=== PATIENT | female | born 1995 | race Caucasian/White ===

== ENCOUNTER 2020-11-04 07:13 | Emergency (ER) | payer BC, SELFPAY ==
[2020-11-04] VITALS (9 sets, daily range): BP systolic 114–136; BP diastolic 66–91; PULSE 60–88; RESP 20; TEMP 36.4–36.8; O2SAT 99–100
--- NOTE | ~2020-11-04 | XR_ITS ---
EXAMINATION: XR shoulder LT min 2V INDICATION: Left shoulder dislocation and pain TECHNIQUE: Four views of the left shoulder are submitted. COMPARISON: None FINDINGS: There is anterior/inferior dislocation of the left humeral head with respect to the glenoid . The acromioclavicular joint is unremarkable. No fracture is identified. The visualized portions of the thorax are unremarkable. Soft tissues are unremarkable. IMPRESSION: 1. Anterior/inferior left glenohumeral dislocation. Reviewed, dictated and finalized at location A. WASHING MACHINE REPAIRER
--- NOTE | ~2020-11-04 | XR_ITS ---
EXAMINATION: XR shoulder LT 1V INDICATION: Left shoulder dislocation post reduction TECHNIQUE: AP view of the left shoulder is obtained. COMPARISON: 0734 hours FINDINGS: The previously described anterior glenohumeral dislocation has been reduced. Alignment is a natomic. No fracture is identified. The visualized portions of the thorax are unremarkable. IMPRESSION: 1. Reduced left glenohumeral dislocation. Reviewed, dictated and finalized at location A. NG MACHINE OPERATOR AUTOMATIC
--- NOTE | 2020-11-04 07:27 | ED.UPPEXIN ---
HPI - Extremity Injury (Upper) General Chief Complaint: Extremity Injury, Upper Stated Complaint: left shoulder dislocation Time Seen by Provider: 11/04/20 07:17 Source: patient Mode of arrival: ambulatory Limitations: no limitations History of Present Illness HPI narrative: A 25-year-old female comes into the emergency department, planing of a left shoulder dislocation. Patient states that she has done this before. She notes a sensation. Patient states that she tried to reduce the shoulder with the help of a neighbor but was unsuccessful. She is complaining of pain in that left shoulder, denies any numbness or tingling in the distal extremity. She has noted that her hand has started to turn blue and feel cold. Related Data Allergies Allergy/AdvReac Type Severity Reaction Status Date / Time No Known Allergies Allergy Verified 11/04/20 07:51 Review of Systems Review of Systems: Narrative: CONSTITUTIONAL: Denies fever, chills, or sweats. EYES: Denies visual changes, redness, or discharge. ENT: Denies rhinorrhea, congestion, sore throat, or otalgia. CARDIOVASCULAR: Denies chest pain, palpitations, or edema. RESPIRATORY: Denies cough or dyspnea. GASTROINTESTINAL: Denies abdominal pain, nausea, vomiting, or diarrhea. GENITOURINARY: Denies dysuria or hematuria. SKIN: Denies rash or itching. MUSCULOSKELETAL: Denies back pain, joint pain, or myalgia. Endorses left shoulder pain NEUROLOGIC: Denies headache, numbness, dizziness, or weakness. PSYCHIATRIC: Denies anxiety or depression. [facility] Social History Social History Gender identity (if verbalized by the patient): Female Exam Narrative: Exam Narrative: GENERAL: Well-appearing, well-nourished, and in no acute distress. HEAD: Normocephalic, atraumatic. EYES: PERRLA and EOMI. ENT: Nares clear, no rhinorrhea or epistaxis. Mucous membranes moist. Oropharynx without tonsillar hypertrophy exudate or other lesions. Bilateral TMs pearly nava nonbulging NECK: Supple. No adenopathy or masses. No carotid bruits or JVD CHEST: Clear to auscultation. No respiratory distress. No wheezes rales or rhonchi HEART: Regular rate and rhythm. No murmur heard. Normal peripheral pulses. ABDOMEN: Soft, nontender, nondistended, normal active bowel sounds. EXTREMITIES: No edema. Obvious deformity of the left shoulder, left hand is dusky and cool. SKIN: Warm, dry, no rash. NEURO: No focal deficits. Alert and oriented x3. PSYCH: Normal mood and affect. Course Reevaluation(s) Reevaluation #1: Patient now awake and alert. It appears as though the effects of the sedatives have worn off. She is answering all questions, seems very oriented. Patient will be observed for a bit longer and then discharged. Time: 08:30 Vital Signs Vital signs: Vital Signs Temperature 36.4 C 11/04/20 07:20 Pulse Rate 78 11/04/20 07:20 Respiratory Rate 20 11/04/20 07:20 Blood Pressure 126/81 11/04/20 07:20 Pulse Oximetry 100 11/04/20 07:20 Temperature 36.8 C 11/04/20 08:15 Pulse Rate 60 11/04/20 08:15 Respiratory Rate 20 11/04/20 08:15 Blood Pressure 114/74 11/04/20 08:15 Pulse Oximetry 100 11/04/20 08:15 Procedures Orthopedic Joint Reduction Joint #1: Time Out Performed: Yes Side: left Joint Reduction Location: shoulder Analgesia: procedural sedation Pre-Procedure Neuro Vascular Exam: abnormal (L hand cool and dusky, sensation intact) Shoulder Technique Used (if applicable): external rotation Post-reduction neuro exam: intact Post-reduction vascular: intact Post Reduction X-Ray Obtained: Yes Post Reduction X-Ray Results: reduced Splint Applied: Yes Patient Tolerated Procedure: well Procedural Sedation Procedural Sedation #1: Provider Performed: sedation and procedure Informed Consent Obtained: yes Equipment in Room: bag and mask, capnography,
[2020-11-04] MEDS: fentaNYL CITRATE INJ (*CRX) 100 MCG/2 ML VIAL 50 MCG IV PUSH (07:55)
[2020-11-04] MEDS: PROPOFOL IV EMULSION 200 MG/20 ML VIAL 65 MG IV PUSH (07:55)
--- NOTE | 2020-11-04 08:04 | PC.NURSE ---
0757 65 mg Propofol ivp given with dr mcmahan at bedside. 0800 40 mg IVP propofol given. dr mcmahan at bedside. jacker in place. pt tolerate well
== END 2020-11-04 08:51 | disposition home or self-care (01) ==
PROVIDERS: Emergency Provider Emergency Medicine; PCP Family Medicine
DX: M24.412 Recurrent dislocation, left shoulder (principal)
CPT/HCPCS: 23650; 73020; 73030; 96374; 96375; 99285; A4565; J2704; J3010

== ENCOUNTER 2020-12-02 08:26 | Outpatient (CLI) | payer BC, SELFPAY ==
--- NOTE | ~2020-12-02 | MR_ITS ---
EXAMINATION: MR shoulder LT w con DATE: 12/02/2020 10:36 INDICATION: Left shoulder anterior dislocation TECHNIQUE: Magnetic resonance imaging (MRI) of the left shoulder was performed following intra-artic ular gadolinium contrast injection and without intravenous contrast. Details of the glenohumeral join t injection have been dictated separately. Sequences included axial T2-weighted FS FSE, axial T1-feroz ghted FS FSE, coronal oblique T1-weighted FS FSE, coronal oblique T2-weighted FSE, sagittal T2-weight ed FS FSE, sagittal T1-weighted FSE, and ABER (abduction external rotation) T1-weighted FS FSE. COMPARISON: Left shoulder radiographs dated 11/04/2020 FINDINGS: Coracoacromial arch: The acromion undersurface is curved in morphology (type II). The coracoacromial ligament is normal. Acromioclavicular joint is normal. Rotator cuff: The supraspinatus, infraspinatus and teres minor are normal. The subscapularis is normal. Normal rota tor cuff muscle bulk and signal. Biceps tendon, glenoid labrum and glenohumeral cartilage: Long head of the biceps tendon is intact. There is a Perthes lesion at the anteroinferior glenoid wit h tear at the chondral labral junction and periosteal stripping including the glenoid attachment of t he anterior and middle glenohumeral ligaments extending approximately 1 cm medially along the anterio r neck of the glenoid. In addition there is a shallow cleft consistent with chondral labral delaminat ion at the 7:00-9:00 position of the posterior inferior glenoid labrum. Glenohumeral cartilage is nor mal. Bones and other: There is marrow edema underlying a Hill-Sachs fracture trough at the posterior superior aspect of the humeral head. Otherwise normal marrow signal. No pathologic marrow replacing process. No abnormal fl uid signal in the subacromial/subdeltoid bursa to suggest bursitis. IMPRESSION: 1. Injury pattern consistent with recent anterior glenohumeral dislocation including a Perthes lesion with labral tear and periosteal stripping at the anteroinferior glenoid including the glenoid attach ments of the middle and inferior glenohumeral ligaments and Hill-Sachs fracture trough at the posteri or superior humeral head. Reviewed, dictated and finalized at location B. IMPRESSION: 1. Injury pattern consistent with recent anterior glenohumeral dislocation incl uding a Perthes lesion with labral tear and periosteal stripping at the anteroi nferior glenoid including the glenoid attachments of the middle and inferior gl enohumeral ligaments and Hill-Sachs fracture trough at the posterior superior h umeral head.
--- NOTE | ~2020-12-02 | XR_ITS ---
EXAMINATION: XR fl inj shoulder LT - MR/CT DATE: 12/02/2020 09:37 INDICATION: Anterior left shoulder dislocation. TECHNIQUE: A time-out was performed to verify the patient's name, date of , and procedure to b e performed. The procedure including the risks, benefits, and alternatives was discussed with the pat ient. Risks discussed included bleeding and infection. The patient understood the risks and agreed to proceed. The skin overlying the left glenohumeral joint was prepped and draped in usual sterile fash ion. Anesthetic was administered with 1% lidocaine subcutaneously. A 22 G needle was advanced under fluoroscopic guidance into the joint. Subsequently, injectate consisting of 12 mL of 1:200 Multihan ce, 1:4 1% lidocaine, and 1:4 Omnipaque 240 was instilled. The needle was removed and the entry site was cleaned and dressed. There were no immediate complications. Fluoroscopy exposure time was 0.1 m inutes. The total number of images was 3. FINDINGS: Real-time fluoroscopy demonstrates the needle and contrast in the left glenohumeral joint. IMPRESSION: 1. Successful left glenohumeral joint injection of contrast for subsequent MR arthrography. Reviewed, dictated and finalized at location A. IMPRESSION: 1. Successful left glenohumeral joint injection of contrast for subsequent MR a rthrography.
== END 2020-12-02 08:27 | disposition home or self-care (01) ==
PROVIDERS: PCP Family Medicine; Visit Provider Orthopaedic Surgery
DX: S43.015A Anterior dislocation of left humerus, initial encounter (principal); X58.XXXA Exposure to other specified factors, initial encounter
CPT/HCPCS: 23350; 73222; A9577; Q9966

== ENCOUNTER 2022-10-19 17:44 | Inpatient (IN) | payer BC, SELFPAY ==
[2022-10-19] VITALS (69 sets, daily range): BP systolic 101–172; BP diastolic 59–123; PULSE 59–136; O2SAT 83–100; BMI 29.2
[2022-10-19 19:35] LABS: Basophils Absolute Auto 0.1 K/mm3 (0.0-0.1); Basophils Percent Auto 0.4 % (0.2-1.2); Eosinophils Absolute Auto 0.1 K/mm3 (0-0.3); Eosinophils Percent Auto 0.7 % (0-4.4); Hematocrit 39.3 % (37.0-47.0); Hemoglobin 13.4 g/dL (12.0-15.0); Immature Granulocyte Absolute 0.14 K/mm3 (0.00-0.031); Lymphocytes Absolute Auto 2.04 K/mm3 (0.9-3.2); Lymphocytes Percent Auto 14.2 % (18.3-44.2); Mean Corpuscular HGB Conc 34.1 g/dl (32-36); Mean Corpuscular Volume 88.1 fl (80-100); Mean Platelet Volume 12.5 fl (7.4-10.4); Monocytes Percent Auto 6.8 % (2.6-8.5); Neutrophils Absolute Auto 11.1 K/mm3 (1.3-6.7); Neutrophils Percent Auto 76.9 % (45.5-73.1); Platelet Count Result 151 k/mm3 (150-375); Red Blood Count 4.46 M/mm3 (4.2-5.4); Red Cell Distribution Width 12.6 % (11.5-14.5); White Blood Count 14.4 K/mm3 (4.5-10.0)
--- NOTE | 2022-10-19 19:50 | LDADM ---
This patient, Leah Valentino, was admitted to Labor/Delivery/Recovery 104 on 10/19/22 at 17:44. Plans for labor, pain management and were discussed with patient. Patient/family oriented to hospital policies and general routines including ID bracelet, bed and alarms, visiting hours, pain management, procedures, bathroom and other care routines, personal items, smoking policy, room service/diet and guest tray routines, security routines, and visiting hours. Patient/Family are encouraged to report perceived risks to care and to ask questions if they do not understand what they are told or what they should do. See OBIX for further documentation.
[2022-10-19] MEDS: LACTATED RINGERS 1,000 ML 125 ML IV CONT ×2 (20:29→22:06)
--- NOTE | 2022-10-19 21:15 | WPDANESEPP ---
Anes - Eval Pre Procedure Procedure: Labor epidural Date/Time: 10/19/22 21:15 Surgeon: Brian Preop Diagnosis: Pain c contractions Pre Op Diagnosis: labor Patient Data Age: 27 Gender: F Height: 1.6 m Weight: 75 kg Last Vital Signs Pulse 67 10/19/22 19:16 BP 142/92 H 10/19/22 19:16 Allergies Allergy/AdvReac Type Severity Reaction Status Date / Time No Known Allergies Allergy Verified 11/04/20 07:51 Home Medications Medication Instructions Recorded Confirmed Type biotin 10,000 mcg capsule 10,000 mcg PO DAILY 09/29/22 09/29/22 History diphenhydramine HCl 25 mg capsule 25 mg PO PC PRN Headache 09/29/22 09/29/22 History (Benadryl) levetiracetam 500 mg 500 mg PO BID 09/29/22 09/29/22 History tablet,extended release 24 hr (Keppra XR) metoclopramide HCl 10 mg/mL 10 mg PRN Headache 09/29/22 History injection syringe prenat.vits,matt,hft-aqkk-ragtk 1 tablet PO DAILY 09/29/22 09/29/22 History Laboratory Tests 10/19/22 10/19/22 10/19/22 19:27 19:27 19:27 WBC 14.4 K/mm3 H K/mm3 (4.5-10.0) RBC 4.46 M/mm3 M/mm3 (4.2-5.4) Hgb 13.4 g/dL g/dL (12.0-15.0) Hct 39.3 % % (37.0-47.0) MCV 88.1 fl fl (80-100) MCH 30.0 pg pg (26-34) MCHC 34.1 g/dl g/dl (32-36) RDW 12.6 % % (11.5-14.5) Plt Count 151 k/mm3 k/mm3 (150-375) MPV 12.5 fl H fl (7.4-10.4) Immature Gran % (Auto) 1.0 % H % (0-0.5) Neut % (Auto) 76.9 % H % (45.5-73.1) Lymph % (Auto) 14.2 % L % (18.3-44.2) [place] % (Auto) 6.8 % % (2.6-8.5) Eos % (Auto) 0.7 % % (0-4.4) Baso % (Auto) 0.4 % % (0.2-1.2) Lymph # (Auto) 2.04 K/mm3 K/mm3 (0.9-3.2) [place] # (Auto) 1.0 K/mm3 H K/mm3 (0.1-0.6) Eos # (Auto) 0.1 K/mm3 K/mm3 (0-0.3) Baso # (Auto) 0.1 K/mm3 K/mm3 (0.0-0.1) Abs Immat Gran (auto) 0.14 K/mm3 H K/mm3 (0.00-0.031) Absolute Neuts (auto) 11.1 K/mm3 H K/mm3 (1.3-6.7) Absolute Nucleated RBC 0.0 K/mm3 K/mm3 (0.0-0.012) Nucleated RBC % 0.0 % % (0.0-0.2) RPR Pending Blood Type O Positive Antibody Screen Negative Patient hx anesthesia problems: none Family hx anesthesia problems: none Results Review: All pre-operative results and documents have been reviewed as part of the pre-operative evaluation. [facility] Family History Family History Grandparent Lung cancer Grandparent Lung cancer Glaucoma Mother Adult idiopathic generalized osteoporosis Social History Social History Smoking status: Never smoker Second hand tobacco smoke exposure: No Substance use: never Lack of Transportation: No Lack of Food: Never True Current Housing: I Have Housing Concerned About Future Housing: No Difficulty Paying Gas/Electric Bills: No Difficulty Paying for Meds: No Currently Unemployed: No Education: Bachelor's Degree Difficulty w/ Childcare or Family Care: No Gender identity (if verbalized by the patient): Female Spiritual care concerns: No Exam Day of Procedure 10/19/22 21:15 Heart: regular rate and rhythm Lungs: normal air movement Airway: Mallampati scale class II Neurological: alert and oriented
--- NOTE | 2022-10-19 21:17 | WPDANESEPP ---
Anes - Eval Pre Procedure Procedure: Labor Epidural Date/Time: 10/19/22 21:17 Surgeon: Brian Preop Diagnosis: Pain c contractions Pre Op Diagnosis: labor Patient Data Age: 27 Gender: F Height: 1.6 m Weight: 75 kg Last Vital Signs Pulse 67 10/19/22 19:16 BP 142/92 H 10/19/22 19:16 Allergies Allergy/AdvReac Type Severity Reaction Status Date / Time No Known Allergies Allergy Verified 11/04/20 07:51 Home Medications Medication Instructions Recorded Confirmed Type biotin 10,000 mcg capsule 10,000 mcg PO DAILY 09/29/22 09/29/22 History diphenhydramine HCl 25 mg capsule 25 mg PO PC PRN Headache 09/29/22 09/29/22 History (Benadryl) levetiracetam 500 mg 500 mg PO BID 09/29/22 09/29/22 History tablet,extended release 24 hr (Keppra XR) metoclopramide HCl 10 mg/mL 10 mg PRN Headache 09/29/22 History injection syringe prenat.vits,matt,zeb-pxmj-fibdt 1 tablet PO DAILY 09/29/22 09/29/22 History Laboratory Tests 10/19/22 10/19/22 10/19/22 19:27 19:27 19:27 WBC 14.4 K/mm3 H K/mm3 (4.5-10.0) RBC 4.46 M/mm3 M/mm3 (4.2-5.4) Hgb 13.4 g/dL g/dL (12.0-15.0) Hct 39.3 % % (37.0-47.0) MCV 88.1 fl fl (80-100) MCH 30.0 pg pg (26-34) MCHC 34.1 g/dl g/dl (32-36) RDW 12.6 % % (11.5-14.5) Plt Count 151 k/mm3 k/mm3 (150-375) MPV 12.5 fl H fl (7.4-10.4) Immature Gran % (Auto) 1.0 % H % (0-0.5) Neut % (Auto) 76.9 % H % (45.5-73.1) Lymph % (Auto) 14.2 % L % (18.3-44.2) [place] % (Auto) 6.8 % % (2.6-8.5) Eos % (Auto) 0.7 % % (0-4.4) Baso % (Auto) 0.4 % % (0.2-1.2) Lymph # (Auto) 2.04 K/mm3 K/mm3 (0.9-3.2) [place] # (Auto) 1.0 K/mm3 H K/mm3 (0.1-0.6) Eos # (Auto) 0.1 K/mm3 K/mm3 (0-0.3) Baso # (Auto) 0.1 K/mm3 K/mm3 (0.0-0.1) Abs Immat Gran (auto) 0.14 K/mm3 H K/mm3 (0.00-0.031) Absolute Neuts (auto) 11.1 K/mm3 H K/mm3 (1.3-6.7) Absolute Nucleated RBC 0.0 K/mm3 K/mm3 (0.0-0.012) Nucleated RBC % 0.0 % % (0.0-0.2) RPR Pending Blood Type O Positive Antibody Screen Negative Patient hx anesthesia problems: none Family hx anesthesia problems: none Results Review: All pre-operative results and documents have been reviewed as part of the pre-operative evaluation. [facility] Family History Family History Grandparent Lung cancer Grandparent Lung cancer Glaucoma Mother Adult idiopathic generalized osteoporosis Social History Social History Smoking status: Never smoker Second hand tobacco smoke exposure: No Substance use: never Lack of Transportation: No Lack of Food: Never True Current Housing: I Have Housing Concerned About Future Housing: No Difficulty Paying Gas/Electric Bills: No Difficulty Paying for Meds: No Currently Unemployed: No Education: Bachelor's Degree Difficulty w/ Childcare or Family Care: No Gender identity (if verbalized by the patient): Female Spiritual care concerns: No Exam Day of Procedure 10/19/22 21:17 Patient weight: normal Heart: regular rate and rhythm Lungs: normal air movement Airway: Mallampati scale class II Neurological: alert and oriented
--- NOTE | 2022-10-19 21:19 | WPDHPUPDATE1 ---
History and Physical Update Update Date/Time: 10/19/22 21:19 27-year-old 1 at 39 weeks gestation who presents in active labor with cervical dilation painful contractions. She is currently 6 cm , 90% effaced, in 0 station. artificial rupture membranes was performed. Clear fluid. To continue expectant management. External monitoring. Epidural is about to be placed. Reassuring status. History and Physical has been reviewed, including an updated exam of the patient. There are NO changes in the patient's condition. Risks, benefits, and alternatives have been discussed and questions answered. Patient agrees to proceed with procedure.
--- NOTE | 2022-10-19 21:37 | WPDANESEPN ---
Anes - Epidural Procedure Note Date/Time: 10/19/22 21:37 Consent: I have discussed with the patient/family/POA, the placement of an epidural catheter and the use of epidural narcotic/local anesthetic for labor analgesia and/or postoperative pain management, including associated potential risks, benefits, complications and side effects. I have discussed alternative methods of labor analgesia and/or postoperative pain management. The patient/family/POA, understand(s) and wish(es) to proceed with epidural narcotic/local anesthetic for labor analgesia and/or postoperative pain management. Time-Out: A pre-procedural Time-Out was completed immediately before starting the procedure and confirmed: Patient Identification, Site, Procedure, Patient Position and the Availability of Requisite Equipment. Clinical Indications: Pain c contractions Epidural Insertion Note Patient position: sitting Skin prep: chlorhexidine and sterile drape Needle: 18g Tuohy-Schliff Catheter: 20g Unstyleted Technique: Loss of resistance. Level of insertion: L4/5 Catheter skin buster (cm): 4 Length in epidural space (cm): 9 Skin anesthesia: lidocaine 1% Test dose: 1.5% Lidocaine with 1:[id number] Epi, negative for subarachnoid Inj and negative for intravascular Inj Time of test dose: 21:29 Observations: tolerated well
[2022-10-19] MEDS: ONDANSETRON INJ 4 MG/2 ML VIAL IV PUSH (22:06)
[2022-10-20] VITALS (20 sets, daily range): BP systolic 97–186; BP diastolic 55–142; PULSE 68–105; RESP 16–18; TEMP 36.6–37.1; O2SAT 100
[2022-10-20] MEDS: OXYTOCIN 30 UNITS/NS 500 ML 30 UNITS/500 ML BAG 125 UNITS IV CONT (00:45)
--- NOTE | 2022-10-20 00:47 | PM.OBPRVD ---
OB - Delivery Note Procedure Delivery date: 10/19/22 Procedure: Delivery augmentation: Pitocin Delivery monitor: External FHT and External Uterine Route of delivery: Laceration Description: Perineal - 2nd Degree Delivery repair: vicryl Specimen: No Quantitative Blood Loss (ml): 450 Anesthesia type: Epidural Baby Date of : 10/19/22 Time of : 12:59 Weeks of gestation at delivery: 39 Infant gender: Male presentation: vertex Placenta delivery description: Spontaneous Cord Vessel Description: 3 Vessels score one minute: 8 score five minutes: 9
[2022-10-20] MEDS: WITCH HAZEL 40 PADS 1 PAD TOPICAL (03:15)
[2022-10-20] MEDS: BENZOCAINE 20% AER SPR (*SP) 56 GM CAN 1 SPRAY TOPICAL (03:15)
--- NOTE | 2022-10-20 03:46 | OBPPTRN ---
Patient transferred to post room # via (553). Support person present. Oriented to unit, room, information board, rooming in, admission packet and security measures. Patient verbalizes understanding.
[2022-10-20] MEDS: IBUPROFEN 600 MG TABLET PO ×3 (07:02→23:24)
[2022-10-20] MEDS: MULTIVIT/MIN/PREN/FOL AC/IRON TABLET 1 TAB PO (07:02)
--- NOTE | 2022-10-20 08:22 | P.PNOB_ITS ---
OB - PN: Subj Subjective Date/time seen: 10/20/22 08:22 Patient comments: no complaints, pain well controlled, incisional pain, tolerating diet and flatus present OB - PN: Obj Data Labs 10/19/22 19:27 Labs: Laboratory Results - last 24 hr 10/19/22 10/19/22 19:27 19:27 WBC 14.4 H RBC 4.46 Hgb 13.4 Hct 39.3 MCV 88.1 MCH 30.0 MCHC 34.1 RDW 12.6 Plt Count 151 MPV 12.5 H Immature Gran % (Auto) 1.0 H Neut % (Auto) 76.9 H Lymph % (Auto) 14.2 L [place] % (Auto) 6.8 Eos % (Auto) 0.7 Baso % (Auto) 0.4 Lymph # (Auto) 2.04 [place] # (Auto) 1.0 H Eos # (Auto) 0.1 Baso # (Auto) 0.1 Abs Immat Gran (auto) 0.14 H Absolute Neuts (auto) 11.1 H Absolute Nucleated RBC 0.0 Nucleated RBC % 0.0 Blood Type O Positive Antibody Screen Negative OB - PN A/P Plan day: 1 Plan: routine care Comments: No problems, routine care Time Spent With Patient Time: Total time spent is greater than 50% in coordination of care (as documented) at patient's floor/unit and/or counseling patient: Exam Const: General: comfortable, no acute distress and alert Resp: Effort & Inspection: normal respiratory effort Auscultation: no crab picker ckles, no rales and no rhonchi Cardio: Rate: regular rate Heart sounds: no click, no murmurs and no rubs GI: Inspection: non-distended GI Palp: No Tenderness to palpation present (GI) Auscultation: normal bowel sounds Other: Incision - CDI Extrem: General: normal to inspection, no pedal edema and no calf tenderness
--- NOTE | 2022-10-20 09:06 | PHAR ---
One tab of the patient's home med of Levetiracetam 500mg (keppra xr) has been verified.
--- NOTE | 2022-10-20 09:09 | WPDANLDPN2 ---
Anes-Prog Note L&D Date/Time: 10/20/22 09:09 Comfortable throughout: labor and delivery Neuraxial method: epidural Epidural/Spinal procedure site: clean & non-tender Neuro status: Neuro function grossly intact. Cardiovascular status: normal Respiratory status: normal Airway patency: baseline Mental status: baseline Post-Op hydration status: normal Vital Signs: Last Vital Signs Temp 37.0 C 10/20/22 07:00 Pulse 79 10/20/22 07:00 Resp 18 10/20/22 07:00 BP 109/72 10/20/22 07:00 Pulse Ox 100 10/20/22 04:15 O2 Del Method Room Air 10/20/22 04:15 Pain score (VAS): 3 I/O: Intake & Output 10/19/22 10/20/22 10/20/22 23:59 07:59 15:59 Intake Total 1000 Output Total 100 Balance 1000 -100 Post-procedural complaints: none Patient feedback: Patient satisfied with anesthetic care.
[2022-10-21 07:50] VITALS: BP 106/77; PULSE 76; RESP 18; TEMP 36.7
[2022-10-21] MEDS: IBUPROFEN 600 MG TABLET PO (07:58)
[2022-10-21] MEDS: MULTIVIT/MIN/PREN/FOL AC/IRON TABLET 1 TAB PO (07:59)
[2022-10-21] MEDS: DOCUSATE SODIUM 100 MG CAPSULE PO (07:59)
[2022-10-21] MEDS: POLYSACCHARIDE IRON COMPLEX 150 MG CAPSULE PO (07:59)
--- NOTE | 2022-10-21 08:10 | PM.OBPNVD ---
OB - PN: Subj Subjective Date/time seen: 10/21/22 08:10 Patient comments: no complaints, pain well controlled and tolerating diet OB - PN: Obj Data Labs 10/21/22 05:09 Labs: Laboratory Results - last 24 hr 10/21/22 05:09 Hgb 9.0 L D Hct 27.0 L OB - PN A/P Plan day: 2 Plan: routine care and discharge home Time Spent With Patient Time: Total time spent is greater than 50% in coordination of care (as documented) at patient's floor/unit and/or counseling patient: Exam Const: General: comfortable and no acute distress Resp: Effort & Inspection: normal respiratory effort Auscultation: no rales, no rhonchi and no wheezes Cardio: Rate: regular rate Heart sounds: no click, no murmurs and no rubs GI: GI Palp: Yes Soft to palpation and No Tenderness to palpation present (GI) Auscultation: normal bowel sounds Extrem: General: normal to inspection, no pedal edema and no calf tenderness
--- NOTE | 2022-10-21 08:11 | PM.OBDSVD ---
DS: Admitting Diagnosis Discharge Date 10/21/21 Admitting Diagnosis term pregn. OB - DS: Summary OB Procedures : None OB Procedures Intrapartum: Spontaneous Vag Delivery OB Procedures: : None Time Spent with Patient Time attestation: Total time spent providing and/or coordinating discharge services: DS: Data Data Completed and Pending Labs on day of discharge: Labs from last 24 hours 10/21/22 05:09 Hgb 9.0 L D Hct 27.0 L Discharge Plan Discharge Discharging Clinician: Tara Torres Patient Disposition: Home, Self-Care Activity: pelvic rest Diet: regular Patient Instructions: Antibiotic Form Stand Alone Forms: General Discharge Information Follow-up/Referrals: Tara Torres MD [Physician] - Discharge Medications: Continued #2 Tablet 1 tablet PO DAILY levetiracetam [Keppra XR] 500 mg tablet extended release 24 hr 500 mg PO BID Rx Instructions: Pt takes 2 -500 mg tablets in morning, 3 tablets in evening biotin 10,000 mcg Capsule 10,000 mcg PO DAILY diphenhydramine HCl [Benadryl] 25 mg Capsule 25 mg PO PC PRN (Reason: Headache) Reglan 10 mg/mL Syringe 10 mg PRN (Reason: Headache) Date of admission: 10/19/22 17:44 Primary Care Provider: Marcie,Chava Byrnes Admitting Provider: Tara Torres Attending physician on admission: Tara Torres Condition: Stable
[2022-10-22 10:11] LABS: Rapid Plasma Reagin Non-Reactive (NonReactive)
[2022-10-22 10:21] VITALS: BP 122/85; PULSE 98; RESP 20; TEMP 36.8; O2SAT 100
== END 2022-10-21 13:00 | disposition home or self-care (01) | DRG 807 ==
LOC: ANHLDR 18:59 → ANHOB2 10-20 03:50
PROVIDERS: Admitting Provider Obstetrics & Gynecology; PCP Family Medicine; Visit Provider Obstetrics & Gynecology
DX: O70.1 Second degree perineal laceration during delivery (principal); Z37.0 Single live birth; Z3A.38 38 weeks gestation of pregnancy
CPT/HCPCS: 36415; 85014; 85018; 85025; 86592; 86850; 86900; 86901; A9270; J2405; J2590; J2795; J7120

== ENCOUNTER 2022-10-24 13:05 | Outpatient (CLI) | payer BC, SELFPAY ==
--- NOTE | 2022-10-24 15:55 | PC.NURSE ---
In- 1305 Out- 1420 Reason for visit: latch issues History: Mother had called for an appointment with related to nipple pain with latching. Mother had purchased a nipple shield on her own to help with the pain. Patient was augmented with Pitocin with a on 10/19 and mother/ were discharged to home 10/21/2022. Medical history: Seizures for which mother takes Keptra and she also takes PNV. Mother states her milk came in on day 4 and her nipples are tender with some cracking. History: No significant history. is gaining weight and output is 7 wets in 24 hours with 2 stools that are described as brown and pasty. Observations: Mother works well with her . Nipples are observed to be slightly cracked and scaly. She brings to the breast with 's body facing the ceiling with arm crossing the body rather than belly to belly close to mother. RN encouraged bringing the infant closer to mother's body, with ear, shoulder and hip in alignment and arms cradling each side of the breast. Infant opened wide, mother brought infant onto her breast. There was a slight indentation in the cheek line, mother denied pain and has a 1:1 suck swallow ratio with good rocking jaw motion. After breastfed for 15 minutes with mother denying pain, infant detached and the nipple was slightly misshaped with a crease slightly to the right of the center line of the nipple. Mother was encouraged to look for the full rounded cheek line and to assess for any signs of pinching. Mother is aware now of the slight pinching pain that may have been present with the latch. Infant is not relaxing both arms and hands at this time. Encouraged mother with changing positions while waiting for the big, open, wide gape. After the the infant was awaken and burped by the father of the baby was placed in football position with mom to the right breast. RN encouraged mother waiting for the big,open gape and assisted infant with a closer and deeper latch. Mother confirms that she has not been bringing infant to the breast as close and deep as practiced. After on the right breast it palpates softer and infant is content with hands and arms relaxed. Mother was encouraged to breastfeed starting with the right breast for the next feeding. Reviewed education regarding sign, symptoms, preventing and treating engorgement and mastitis. Mother voiced understanding information. weight: 3250g (7lbs 2.6oz) Lowest weight: 3020g (6lbs-10.5oz) Last weight: same as above Pre-feed weight: 3087g (6lbs-12.8 oz) Post-feed weight: 3120g (6lbs-14oz) after 30 minute session. Plan of Care: Mother was educated on practicing changing positions with optimal big, open, wide gape, then when visualized bringing infant in close with a deep mouthful with chin buried and nose near on demand keeping with 2 hours in the daytime and every 3 hours at night for 24 hours with one 4-5 hour sleep. Warm, wet compress to the breast before and cold compress afterward for engorgement relief discomfort feeding often to keep good milk removal. Follow up plans: Follow up phone call was made and mother states the session at home went well like at the appointment with no pain and infant is now content and sleeping. Mother will continue to observe for signs of mastitis and has an appt with Dr. Torres and Dr. Aguirre tomorrow. Mother was encourage to call as needed.
== END 2022-10-24 13:06 | disposition home or self-care (01) ==
LOC: ANHOBOP 13:06
PROVIDERS: PCP Family Medicine; Visit Provider Pediatrics
DX: Z39.1 Encounter for care and examination of lactating mother (principal)
CPT/HCPCS: 99213; G0463

== ENCOUNTER 2025-05-03 00:46 | Inpatient (IN) | payer OTHER, SELFPAY ==
[2025-05-03] VITALS (75 sets, daily range): BP systolic 89–156; BP diastolic 52–112; PULSE 56–131; RESP 16–18; TEMP 36.6–37.1; O2SAT 83–100
--- OUTSIDE RECORDS SUMMARY | 2025-05-03 01:13 | XMS_ITS | Encounter Summary ---
Author Organization [facility] Address [address] [place] [address] Phone Care Team Providers Care Regional Sales Leader Name Role Phone Chava Jack MD Primary Care Provider [phone] Encounter Details Date Type Department Care Team (Latest Contact Info) Description 04/28/2014 Orders Only ALEX NL EPILEPSY Scanning, Provider Social History Tobacco Use Types Packs/Day Years Used Date Smoking Tobacco: Never Assessed Comments Unknown Sex and Gender Information Value Date Recorded Sex Assigned at Not on file Legal Sex Female 3:34 PM SERVICE CONSULTANT Gender Identity Female 10/27/2019 6:56 AM SERVICE CONSULTANT Sexual Orientation Straight 10/27/2019 6: 56 AM SERVICE CONSULTANT documented as of this encounter Plan of Treatment Not on file documented as of this encounter Procedures Procedure Name Priority Date/Time Associated Diagnosis Comments SCAN - NEUROLOGY 04/28/2014 documented in this encounter Results * SCAN - NEUROLOGY (04/28/2014) Anatomical Region Laterality Modality Other us Provider Scanning Final Result documented in this encounter Visit Diagnoses Not on filedocumented in this encounter Additional Health Concerns Infection Onset Date Last Indicated Resolved Time COVID: Suspected 09/24/2020 09/24/2020 09/25/2020 2:39 AM SERVICE CONSULTANT COVID19 09/24/2020 09/24/2020 10/08/2020 3:07 AM SERVICE CONSULTANT COVID: Recovered Comment:Added based on recent COVID infection. 10/08/2020 11/14/2020 02/05/2021 3:05 AM C DT COVID: Suspected 08/10/2024 08/10/2024 08/10/2024 11:39 AM SERVICE CONSULTANT documented as of this encounter Care Teams Regional Sales Leader Relationship Specialty Start Date End Date Chava Jack MD [address] [place] [address] PCP - General Family Medicine 01/20/18 documented as of this encounter
--- OUTSIDE RECORDS SUMMARY | 2025-05-03 01:13 | XMS_ITS | Clinical Summary ---
Author Organization [facility] Address [address] [place] [address] Care Team Providers Care Cylindrical Mixer Name Role Phone Chava Jack MD Primary Care Provider [phone] Source Comments [facility],non-owned Affiliates and Associated Physician Practices is amultiple site organization consisting of ambulatory clinics and hospital sitesin [place], [place], [place] and [place]. This disclosure is being madepursuant to the Care Everywhere program and may not contain all information available regarding this patient. Last updated 18.[facility] Allergies No known active allergies Medications * Be aware that medications may not be up to date on this document. Alwaysverify current medications with the patient. Biotin 60561 MCG TBDP Take by mouth once daily 01/30/2012 Active MV-Min-Fe Fum-FA-DHA ( MULTI +DHA) 27-0.8-200 MG CAPS Take by mouth once daily 09/18/2021 Active Garlic 1000 MG Take by mouth once daily 08/24/2019 Active Folic Acid (FOLATE PO) Take by mouth once daily 09/18/2021 Active Docusate Calcium (STOOL SOFTENER PO) Take by mouth as needed Active Keppra XR 500 MG tablet Take 5 (five) tablets by mouth once daily 450 tablet 3 08/27/2022 Active VITAMIN D PO Active Family History Medical History Relation Name Comments Cancer - Lung Maternal Grandfather Cancer - Lung Paternal Grandfather Relation Name Status Comments Maternal Grandfather Paternal Grandfather Social History Tobacco Use Types Packs/Day Years Used Date Smoking Tobacco: Never Smokeless Tobacco: Never Alcohol Use Standard Drinks/Week Comments Not Currently 0 (1 standard drink = 0.6 oz pur e alcohol) Comments No Sex and Gender Information Value Date Recorded Sex Assigned at Female 11/13/2021 3:55 PM PIT BOSS Legal Sex Female 9:17 AM CDT Gender Identity Female 04/13/2021 9:17 AM CDT Sexual Orientation Not on file Last Filed Vital Signs Vital Sign Reading Time Taken Comments Blood Pressure 123/64 06/13/2022 2:24 PM CDT Pulse 73 06/13/2022 2:24 PM CDT Temperature - - Respiratory Rate 16 02/20/2022 2:13 PM CDT Oxygen Saturation - - Inhaled Oxygen Concentration - - Weight 62.1 kg (137 lb) 11/15/2022 8:44 AM PIT BOSS Height 160 cm (5' 3) 11/15/2022 8:44 AM PIT BOSS Body Mass Index 24.27 11/15/2022 8:44 AM PIT BOSS Plan of Treatment Health Maintenance Due Date Last Done Comments HEPATITIS C SCREENING 08/28/2011 DTAP/TDAP/TD VACCINES (1 - Tdap) 2012 HEPATITIS B VACCINE (1 of 3 - 19+ 3-dose series) 2012 HPV VACCINE (1 - 3-dose SCDM series) 2020 COVID-19 VACCINE ( - season) 2024 DEPRESSION SCREENING 09/16/2024 PAP SMEAR 03/09/2025 03/09/2022 INFLUENZA VACCINE (#1) 2025 , 06/14/2021, 06/16/2020, Additional history exists ZOSTER VACCINE (1 of 2) 2043 HIV SCREENING Completed 04/16/2022 HIB VACCINE Aged Out No longer eligi ble based on patient's age to complete this topic MENINGOCOCCAL (Group B) VACCINE SHARED DECISION-MAKING Aged Out No longer eligible based on patient's age to complete this topic MENINGOCOCCAL GROUPS A/C/Y/W VACCINE Aged Out No longer eligible based on patient's age to complete this topic PNEUMOCOCCAL VACCINE Aged Out No long er eligible based on patient's age to complete this topic Insurance ANTHEM ANTHEM Care Teams Cylindrical Mixer Relationship Specialty Start Date [place] [address] PCP - General Internal Medicine 11/13/21
--- OUTSIDE RECORDS SUMMARY | 2025-05-03 01:13 | XMS_ITS | Clinical Summary ---
Author Organization [facility] [address] [facility] Address [address] [place] [address] Care Team Providers Care Marketing Manager Health Communications Name Role Phone Chava Jack MD Primary Care Provider [phone] Allergies Active Allergy Reactions Criticality Noted Date Comments Dicloxacillin Rash Medium 11/06/2023 Dicloxacillin Sodium Rash Medium 11/09/2023 Rash on arms and stomach, lump feeling in back of throat Medications biotin 10,000 mcg capsule Take by mouth. Active [id number] AC-DHA ORAL 01/16/2022 Active folic acid 0.8 mg capsule 01/16/2022 Active garlic 100 mg tablet 05/22/2023 Active diphenhydrAMINE (BenadryL) 25 mg capsule 10/29/2024 Active cetirizine (ZyrTEC) 10 mg capsule Active Active Problems Problem Noted Date Diagnosed Date Acute non-recurrent pansinusitis 11/11/2024 Assessment & Plan (11/11/2024 8:51 AM GUIDE FOREIGN TOUR): Continue Flonase Zyrtec, adequate p.o. hydration. Allergy to dicloxacillin. She is unsure if take amoxicillin. Will initiate azithromycin. RTC if worsening not resolving. She is in agreement with plan and states understanding. 14 weeks gestation of 11/11/2024 Assessment & Plan (11/11/2024 8:53 AM GUIDE FOREIGN TOUR): Reviewed azithromycin, Zyrtec, Flonase and . No contraindications. Of course limiting as much medication as possible in 1st trimester especially reviewed. Anterior dislocation of left shoulder 11/19/2020 Epilepsy undetermined as to focal or generalized 10/27/2019 Comments Yes Immunizations Immunization Administration Dates Next Due Influenza, Quadrivalent, Spl it, Intramuscular 06/11/2019 Influenza, Quadrivalent, Spl it, Preservative Free, Intramuscular 06/26/2018,05/30/2017 Influenza, Unspecified 11/12/2023(Deferr ed: Patient Refused),09/16/2022(Deferred: Patient Refused),06/16/2020,06/30/2019, 018 Tdap 10/03/2022 Surgical History Surgery Date Site/Laterality Comments SINUS SURGERY 06/16/2015 - 07/16/2015 Medical History Medical History Date Comments Seizures (HCC) 03/2013 Migraines 12/2010 Family History Medical History Relation Name Comments Hypertension Father Gene No Known Problems Sister 1 Jayleen No Known Problems Sister 2 Xochilt Relation Name Status Comments Father Gene Alive Mother Ingrid Alive Sister 1 Jayleen Alive Sister 2 Xochilt Alive Social History Tobacco Use Types Packs/Day Years Used Date Smoking Tobacco: Never Smokeless Tobacco: Never Alcohol Use Standard Drinks/Week Comments No 0 (1 standard drink = 0.6 oz pur e alcohol) PHQ-2 Answer Date Recorded PHQ-2 Total Score (If total score is 3 or more points, staff should administer the PHQ-9) 0 01/30/2021 Comments Yes Sex and Gender Information Value Date Recorded Sex Assigned at Not on file Legal Sex Female 3:34 PM GUIDE FOREIGN TOUR Gender Identity Female 10/27/2019 6:56 AM GUIDE FOREIGN TOUR Sexual Orientation Straight 10/27/2019 6: 56 AM GUIDE FOREIGN TOUR Obstetrics History Para Term AB IAB SAB Ectopic Multiple Livin g Live Births 1 Date Outcome GA Total Labor Labor/2nd/3rd Weight Sex Type Anes PTL Latrice A1 A5 Name Clin Current Last Filed Vital Signs Vital Sign Reading Time Taken Comments Blood Pressure 98/64 11/11/2024 8:30 AM GUIDE FOREIGN TOUR Pulse 84 11/11/2024 8:30 AM GUIDE FOREIGN TOUR Temperature 36.7 C (98 F) 11/11/2024 8:30 AM GUIDE FOREIGN TOUR Respiratory Rate 18 11/11/2024 8:30 AM GUIDE FOREIGN TOUR Oxygen Saturation 99% 11/11/2024 8:30 AM GUIDE FOREIGN TOUR Inhaled Oxygen Concentration - - Weight 63.1 kg (139 lb 3.2 oz) 11/11/2024 8:30 A M GUIDE FOREIGN TOUR Height 160 cm (5' 3) 11/11/2024 8:30 AM GUIDE FOREIGN TOUR Body Mass Index 24.66 11/11/2024 8:30 AM GUIDE FOREIGN TOUR Plan of Treatment Health Maintenance Due Date Last Done Comments Cervical Cancer Screening 1993 Hepatitis C Screening 1993 Varicella Vaccines (1 of 2 - 13+ 2-dose series) 2006 Hepatitis B Screening 2011 Regular Well Visit/Exam 18-64 2011 HPV Vaccines (1 - 3-dose SCDM series) 2020 Depression Screening 01/30/2022 01/30/2021, 11/14/2020, 04/18/2020, Additional history exists Influenza Vaccine (#1) 2025 , 06/30/2019, 06/11/2019, Additional history exists DTaP/Tdap/Td Vaccine (2 - Td or Tdap) 10/03/2032 10/03/2022 Pneumococcal vaccine <65 Aged Out No longer eligible based on patient's age to complete this topic Insurance [facility] [employer] Member Subscriber Plan / Payer (Ef fective 2017-Present) Name:AURORA CHRISTENSEN Relation to Subscriber:Self Name:Aurora Lao Payer ID:[id number] (NAIC) Type: [place] Address: [facility] [id number] [employer] [place] [employer] [facility] Care Teams Marketing Manager Health Communications Relationship Specialty Start Date End Date Chava Jack MD [address] [place] [address] PCP - General Family Medicine 01/20/18
--- OUTSIDE RECORDS SUMMARY | 2025-05-03 01:13 | XMS_ITS | Continuity of Care Document ---
Author Organization [facility] Address [address] [place] [address] Phone Care Team Providers Care Chief Building Inspector Name Role Phone [facility], Nurse Unavailable Unavailable Allergies, Adverse Reactions, Alerts Substance Reaction Status Criticality No Known allergies Medications Medication Instructions Dosage Effective Dates (start - stop) Status Comments Loestrin 24 Fe 1 mg-20 mcg (24)/75 mg (4) Tab take 1 tablet by oral route every day - Active Procedures Procedure Date MENINGOCOCCAL VACCINE, IM FLU VACC PANDEMIC As per patient privacy policy some of the clinical information may not be visible. Advance Directives Directive Yes / No Effective Date File Name No Information Encounters Encounter Description Practice Location Reason(s) For Visit Diagnoses Date Provider Providers Copied on Encounter [facility], [address] [place] [address], [address], [place] tel:[phone] C BMB IZ immunization (chief complaint) Need for prophylactic vaccination and inoculation against other specified single bacterial diseaseNeed for prophylactic vaccination and inoculation against viralhepatitis 201 2 [facility] Nurse. [address] [place] [address], [id number] , [place]. tel: [phone] [facility], [address] [place] [address], [address], [place] tel:[phone] L [facility] No Information 200 9 [facility] Nurse. [address] [place] [address], [id number] , [place]. tel: [phone] [facility], [address] [place] [address], [address], [place] tel:[phone] Z [facility] No Information 0 1-200 9 [facility]. [address] [place], [address], . Family History Family Member Type Diagnosis Age At Onset No Information Immunizations Vaccine Date Status Comments Hep A (ped/adol, 2 dose) administered Lanny rce: New Immunization Record MCV4 (11-55 yrs) administered Source: New Immunization Record Influenza (H1N1) virus vacci ne, pandemic formulation administered Source: New Immuniz ation Record INFLUENZA .50 DOSE administered Note: RA ; Source: New Immunization Record HEP A VAC PED/ADOL administered Note: RA ; Source: New Immunization Record HUMAN PAPILLOMAVIRUS administered Note: L A ; Source: New Immunization Record HUMAN PAPILLOMAVIRUS administered Note: L A ; Source: New Immunization Record VARICELLA, PED/ADOLESCENT administered No te: RA ; Source: New Immunization Record MENINGOCCOCAL CONJUGATE PED/AD administer ed Note: RA ; Source: New Immunization Record HUMAN PAPILLOMAVIRUS administered Note: L A ; Source: New Immunization Record Tdap administered Source: Parents Written Record DTP administered Source: New Imm unization Record [id number], PED/ADL administer ed Source: New Immunization Record ORAL POLIO administered Source: New Imm unization Record VARICELLA, PED/ADOLESCENT administered So urce: New Immunization Record DTP administered Source: New Imm unization Record ORAL POLIO administered Source: New Imm unization Record HIB 3 DOSE SERIES administered Source: Ne w Immunization Record [id number], PED/ADL administer ed Source: New Immunization Record DTP administered Source: New Imm unization Record ORAL POLIO administered Source: New Imm unization Record HEP B VACCINE PED/ADOL administered Sourc e: New Immunization Record DTP administered Source: New Imm unization Record ORAL POLIO administered Source: New Imm unization Record DTP administered Source: New Imm unization Record ORAL POLIO administered Source: New Imm unization Record HEP B VACCINE PED/ADOL administered Sourc e: New Immunization Record HEP B VACCINE PED/ADOL administered Sourc e: New Immunization Record Payers Payer name Insurance type Covered libertarian ID Authoriza tion(s) No Information Social History Type Description Quantity Date Captured Comments Sex Female Smoking Status No Information Chief Complaint And Reason For Visit From encounter dated '03/13/2012 13:00'. immunization (chief complaint) History Of Present Illness Encounter Date Complaint History Of Prese nt Illness No Information Instructions Date Instruction Additional Infor mation No Information Assessments Type Assessment Date No Information Patient Care Teams Name Effective Dates (start - stop) Status Members No Information
[2025-05-03] MEDS: LACTATED RINGERS 1,000 ML 125 ML IV CONT (01:22)
--- NOTE | 2025-05-03 01:27 | LDADM ---
This patient, Leah Valentino, was admitted to Labor/Delivery/Recovery 106 on 05/03/25 at 00:46. Plans for labor, pain management and were discussed with patient. Patient/family oriented to hospital policies and general routines including ID bracelet, bed and alarms, visiting hours, pain management, procedures, bathroom and other care routines, personal items, smoking policy, room service/diet and guest tray routines, security routines, and visiting hours. Patient/Family are encouraged to report perceived risks to care and to ask questions if they do not understand what they are told or what they should do. See OBIX for further documentation.
[2025-05-03 01:34] LABS: Hematocrit 35.7 % (37.0-47.0); Hemoglobin 12.0 g/dL (12.0-15.0); Immature Granulocyte Percent A 0.6 % (0-0.5); Immature Platelet Fraction Pct 13.3 % (0.9-11.2); Lymphocytes Absolute Auto 2.68 K/mm3 (0.9-3.2); Mean Corpuscular HGB Conc 33.6 g/dl (32-36); Mean Corpuscular Hemoglobin 28.7 pg (26-34); Mean Corpuscular Volume 85.4 fl (80-100); Nucleated Red Blood Cells Absolute Auto 0.000 K/mm3 (0.0-0.012); Nucleated Red Blood Cells Perc 0.0 % (0.0-0.2); Platelet Count Result 154 k/mm3 (150-375); Red Blood Count 4.18 M/mm3 (4.2-5.4); White Blood Count 13.6 K/mm3 (4.5-10.0)
[2025-05-03] MEDS: ONDANSETRON INJ 4 MG/2 ML VIAL IV PUSH (01:34)
[2025-05-03 02:10] LABS: Syphilis IgG/IgM Antibody Non-Reactive (Nonreactive)
--- NOTE | 2025-05-03 02:34 | WPDANESEPP ---
Anes - Eval Pre Procedure Procedure: labor pain management Date/Time: 05/03/25 02:34 Surgeon: Brian Preop Diagnosis: pain during labor Pre Op Diagnosis: Labor Patient Data Age: 29 Gender: F Height: 1.6 m Weight: 77 kg Last Vital Signs Pulse 68 05/03/25 02:32 BP 108/63 05/03/25 02:32 Pulse Ox 100 05/03/25 02:31 O2 Del Method Room Air 05/03/25 01:24 Allergies Allergy/AdvReac Type Severity Reaction Status Date / Time No Known Allergies Allergy Verified 04/19/25 15:46 Home Medications ?Medication ?Instructions ?Recorded ?Confirmed ?Type biotin 10,000 mcg capsule 10,000 mcg PO DAILY 09/29/22 04/19/25 History prenat.vits,mtat,doe-coyu-zjksv 1 tablet PO DAILY 09/29/22 04/19/25 History Laboratory Tests 05/03/25 01:19 WBC 13.6 H K/mm3 (4.5-10.0) RBC 4.18 L M/mm3 (4.2-5.4) Hgb 12.0 D g/dL (12.0-15.0) Hct 35.7 L % (37.0-47.0) MCV 85.4 fl (80-100) MCH 28.7 pg (26-34) MCHC 33.6 g/dl (32-36) RDW 12.8 % (11.5-14.5) Plt Count 154 k/mm3 (150-375) MPV 12.8 H fl (7.4-10.4) Immature Gran % (Auto) 0.6 H % (0-0.5) Neut % (Auto) 71.9 % (45.5-73.1) Lymph % (Auto) 19.7 % (18.3-44.2) [place] % (Auto) 6.6 % (2.6-8.5) Eos % (Auto) 0.8 % (0-4.4) Baso % (Auto) 0.4 % (0.2-1.2) Lymph # (Auto) 2.68 K/mm3 (0.9-3.2) [place] # (Auto) 0.9 H K/mm3 (0.1-0.6) Eos # (Auto) 0.1 K/mm3 (0-0.3) Baso # (Auto) 0.1 K/mm3 (0.0-0.1) Abs Immat Gran (auto) 0.08 H K/mm3 (0.00-0.031) Absolute Neuts (auto) 9.8 H K/mm3 (1.3-6.7) Absolute Nucleated RBC 0.000 K/mm3 (0.0-0.012) Nucleated RBC % 0.0 % (0.0-0.2) % Immature Plt Fraction 13.3 H % (0.9-11.2) Syphilis IgG/IgM Ab Non-reactive (Nonreactive) Patient hx anesthesia problems: none Family hx anesthesia problems: none Results Review: All pre-operative results and documents have been reviewed as part of the pre-operative evaluation. [facility] Family History Family History Grandparent Lung cancer Grandparent Lung cancer Glaucoma Mother Adult idiopathic generalized osteoporosis Social History Social History Smoking status: Never smoker Second hand tobacco smoke exposure: No Substance use: never Lack of Transportation: No Lack of Food: Never True Current Housing: I Have Housing Concerned About Future Housing: No Difficulty Paying Gas/Electric Bills: No Difficulty Paying for Meds: No Currently Unemployed: No Education: Bachelor's Degree Difficulty w/ Childcare or Family Care: No Gender identity (if verbalized by the patient): Female Spiritual care concerns: No Exam Day of Procedure 05/03/25 02:34
[2025-05-03] MEDS: OXYTOCIN 30 UNITS/NS 500 ML 30 UNITS/500 ML BAG 999 UNITS IV CONT (03:53)
--- NOTE | 2025-05-03 04:03 | WPDOBADMIT ---
Obstetrics - Admit Note Admission Note: record reviewed. No pertinent additions to the history and/or any subsequent changes in the physical findings that are not consistent with the expected course of the were found. Patient presents in labor, contractions starting at 1630. AROM of clear fluid, SVE complete. Additions to the history and/or subsequent changes in the physical findings follow. None.
--- NOTE | 2025-05-03 04:05 | PM.OBPRVD ---
OB - Vaginal Delivery Note Procedure Delivery date: 05/03/25 Delivery augmentation: Rupture of Membranes Delivery monitor: External FHT and External Uterine Route of delivery: Episiotomy description: None Laceration Description: Perineal - 1st Degree Delivery repair: vicryl Specimen: No Quantitative Blood Loss (ml): 100 Anesthesia type: Epidural Disposition: Floor Complications: No immediate complications Narrative: See H&P and notes for details on patient's admission and labor. She progressed to complete cervical dilation and at the appropriate time began pushing. With adequate expulsive efforts by the mother, the baby's head was delivered without difficulty. Nuchal cord was present x1 and was delivered through. The baby's right shoulder was anterior and delivered under the pubic symphysis without difficulty. The posterior shoulder and the rest of the baby delivered without difficulty. The umbilical cord was doubly clamped and cut after 60 seconds of delayed cord clamping. Care of the was then assumed by the nursing staff. Baby Date of : 05/03/25 Time of : 03:44 Gestational Age by Date: 36 gender: Female Weight (pounds): 6 Weight (ounces): 5 presentation: vertex position: Left Occiput Anterior Placenta delivery description: Expressed Cord Vessel Description: 3 Vessels, Nuchal Cord, Delayed Cord Clamping and Around Body
[2025-05-03] MEDS: OXYTOCIN 30 UNITS/NS 500 ML 30 UNITS/500 ML BAG 125 UNITS IV CONT (04:31)
[2025-05-03] MEDS: LORATADINE 10 MG TABLET PO (08:25)
[2025-05-03] MEDS: WITCH HAZEL 40 PADS 1 PAD TOPICAL (09:20)
[2025-05-03] MEDS: BENZOCAINE 20% AER SPR (*SP) 56 GM CAN 1 SPRAY TOPICAL (09:20)
--- NOTE | 2025-05-03 09:55 | PC.NURSE ---
Patient admitted to second floor and called out for assistance. Observed mother latching infant to the [right] breast in [football] position. Infant [was] able to maintain an appropriate latch. Mother [declines] nipple pain/discomfort [throughout feeding]. Infant released the breast and mother switched her to cradle hold on the left breast. She has concerns that baby was clicking on the left side at the last feeding. Baby clamps her lips on the left nipple and comes off and on the breast frequently. We tried to reposition baby and adjust her head for a more extended neck without any change in the feeling of the latch. Suggested trying football hold on this side to see if the latch is more comfortable. No clicking or slurping heard. Mom states that the latch is better in football hold and we discussed switching positions throughout the day today to prevent any area from becoming rubbed or painful. Baby has a wide gape and attaches eagerly. Encouraged mother to keep awake and nursing at the breast for as long as baby desires. Mother taught to listen for infant swallowing during feedings. She breastfed her first child without difficulty, latching well from the beginning. Reviewed using the blue feeding sheet to record time and duration of feeding. Mother voiced understanding of the education shared, to call for assistance if the infant does not latch or if there is discomfort with . name/number on communication board. Reported to the Primary RN.?
--- NOTE | 2025-05-03 11:00 | OBPPTRN ---
0935-Patient transferred to post room #290 via wheelchair. Support person present. Oriented to unit, room, information board, rooming in, admission packet and security measures. Patient verbalizes understanding.
[2025-05-03] MEDS: ACETAMINOPHEN 325 MG TABLET 650 MG PO (16:11)
[2025-05-03] MEDS: IBUPROFEN 600 MG TABLET PO (20:16)
[2025-05-04 04:00] VITALS: BP 116/72; PULSE 68; RESP 16; TEMP 36.6; O2SAT 99
[2025-05-04 05:49] LABS: Hematocrit 32.2 % (37.0-47.0); Hemoglobin 10.5 g/dL (12.0-15.0)
--- NOTE | 2025-05-04 07:45 | PC.NURSE ---
0745: Assisted mother to latch baby to the right breast. Baby is sleepy and it took some effort to wake her. She was able to latch in the cross cradle hold. Mom is encouraged to compress the breast to make a bite for baby and to hold baby so her chin is off of her chest. Baby is able to latch and suckle on the right breast, which has been the more challenging side overnight. Mom is leaking colostrum. She handles baby and her breast well. Encouraged continued practice on the right breast with the 'breast sandwich' technique. Parents are encouraged to call out for any additional assistance needed before they are discharged home today. 0845: Reviewed standard discharge information with patient and her significant other including monitoring infant for required output, transition of stools, feeding 8-12 times every 24 hours, milk production, and follow up at [place] and with tire service technician in the first week of life. Parents are encouraged to take the feeding log and continue to track feedings and output for the first week . Engorgement and mastitis reviewed. Offered outpatient resources with [facility] referral and Services at [place]. Patient has the Mom/Baby Guide for further education and reference for common concerns, phone numbers, and guidance on when to call the doctor. A feeding plan was added to the ?s discharge plan. Patient states that she has no further questions or concerns regarding .???
--- NOTE | 2025-05-04 07:57 | P.PNOB_ITS ---
OB - PN: Subj Subjective Date/time seen: 05/04/25 07:57 Interval history: PPD#1 s/p Doing well, pain controlled Tolerating general diet Voiding without issue Ready to discharge home OB - PN: Obj Data Labs 05/04/25 03:34 Labs: Laboratory Results - last 24 hr 05/04/25 03:34 Hgb 10.5 L Hct 32.2 L OB - PN A/P Assessment and Plan (1) (spontaneous vaginal delivery): Code(s): O80 - Encounter for full-term uncomplicated delivery Status: Acute Plan day: 1 Plan: routine care and discharge home Time Spent With Patient Time: Total time spent is greater than 50% in coordination of care (as documented) at patient's floor/unit and/or counseling patient: Review of Systems 2 Review of Systems: All systems reviewed & are unremarkable except as noted in HPI and below Exam 2 Const: General: comfortable and no acute distress O rientation/consciousness: patient oriented x3 Resp: Effort & Inspection: normal respiratory effort
--- NOTE | 2025-05-04 08:03 | P.DS_ITS ---
DS: Admitting Diagnosis Discharge Date 05/04/25 Admitting Diagnosis labor DS: Discharge Diagnosis Discharge Diagnosis (1) (spontaneous vaginal delivery): Code(s): O80 - Encounter for full-term uncomplicated delivery Status: Acute OB - DS: Summary OB Procedures : None OB Procedures Intrapartum: Spontaneous Vag Delivery OB Procedures: : None Peripartum Data Laceration Description: Perineal - 1st Degree Episiotomy description: None Time Spent with Patient Time attestation: Total time spent providing and/or coordinating discharge services: DS: Data Data Completed and Pending Labs on day of discharge: Labs from last 24 hours 05/04/25 03:34 Hgb 10.5 L Hct 32.2 L Discharge Plan Discharge Attending physician on discharge: Teja Arteaga Discharging Clinician: Teja Arteaga Patient Disposition: Home Activity: may shower, as tolerated and pelvic rest Diet: as tolerated Patient Instructions: Antibiotic Form Patient Language: Palauan Stand Alone Forms: General Discharge Information Follow-up/Referrals: Eris Torres MD [Physician, CERTIFIED NURSE OPERATING ROOM] - 4 Weeks Discharge Medications: New ibuprofen 600 mg Tablet 600 mg PO Q6H PRN (Reason: Cramping) Qty: 30 0RF Continued prenat.vits,matt,eqv-rjpd-vuinh Tablet 1 tablet PO DAILY biotin 10,000 mcg Capsule 10,000 mcg PO DAILY Date of admission: 05/03/25 00:46 Primary Care Provider: IsisChvaa Admitting Provider: Eris Torres Attending physician on admission: Eris Torres Condition: Stable
[2025-05-04 08:05] VITALS: BP 122/68; PULSE 64; RESP 18; TEMP 36.6; O2SAT 99
[2025-05-05 11:25] VITALS: PULSE 84; RESP 18; TEMP 36.9; O2SAT 100
== END 2025-05-04 09:56 | disposition home or self-care (01) | DRG 807 ==
LOC: ANHLDR 01:32 → ANHOB2 09:36
PROVIDERS: Obstetrics & Gynecology; Admitting Provider Obstetrics & Gynecology; PCP Family Medicine; Visit Provider Obstetrics & Gynecology
DX: O69.81X0 Labor and delivery complicated by cord around neck, without compression, not applicable or unspecified (principal); Z37.0 Single live birth; Z3A.38 38 weeks gestation of pregnancy; O70.0 First degree perineal laceration during delivery
CPT/HCPCS: 36415; 85014; 85018; 85025; 85055; 86593; 86850; 86900; 86901; A9270; J1200; J2405; J2590; J2795; J7120